=== PATIENT | male | born 1975 | race American Indian/Alaskan Native ===

== ENCOUNTER 2023-10-11 10:03 | Emergency (ER) | payer OTHER, SELFPAY ==
[2023-10-11 10:14] VITALS: BP 136/93; PULSE 92; RESP 18; TEMP 36.5; O2SAT 96; BMI 30.3
--- NOTE | 2023-10-11 10:35 | ED.GENADULT ---
HPI - General Adult General Chief complaint: Eye Problems Stated complaint: eye problem - Time Seen by Provider: 10/11/23 10:23 History of Present Illness HPI narrative: Patient is a 47-year-old male who reports right eye redness gluing shot in the morning matter over the last day. He does wear contacts, he has taken his out is wearing his glasses. He denies trauma or injury to his eye. He has no rashes around his eye. He notices a lid on the upper lid is swollen and red and he has got a lot of medial drainage from his I. It was glued shut today's got matter on his eye lashes as well. His gross visual acuity is normal but he notices a little more blurry with the matter in his eye area. 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 He notices that when he lifts his shoulder or abduct sedate gets more tender, can also feel little tingly in his biceps area and into his forearm. He notices when he raises hands over his head or uses arm he feels more discomfort in the shoulder. He has not. He has not really noted palpable tenderness no shoulder swelling redness or has not had trauma. He does do pretty heavy work however. Related Data Previous Rx's ?Medication ?Instructions ?Recorded doxycycline hyclate 100 mg capsule 100 mg PO BID #14 caps 10/11/23 tobramycin 0.3 % eye drops 1 drp ophthalmic (eye-right) Q4H 10/11/23 #5 mL Allergies Allergy/AdvReac Type Severity Reaction Status Date / Time erythromycin base Allergy Intermediate Verified 10/11/23 10:20 meperidine [From Demerol] Allergy Intermediate Verified 10/11/23 10:20 Penicillins Allergy Intermediate Hives Verified 10/11/23 10:20 Sulfa (Sulfonamide Allergy Intermediate Verified 10/11/23 10:20 Antibiotics) Review of Systems Status of ROS: Reports: 6 or more systems reviewed and unremarkable except as noted in History and below [facility] Social History Smoking Status: Unknown if ever smoked Exam Narrative: Exam Narrative: Objective: Patient's vital signs are within normal limits His left shoulder shows a positive impingement sign on the left and some tenderness over the top of the shoulder with empty watering can test, he has full range of motion the left shoulder no swelling warmth erythema Normal strength in left upper extremity. Does have some mild anterior tenderness to the shoulder. Does not have any neck symptoms. HEENT shows exudate of conjunctivitis on the right eye with lid swelling upper and lower worse on the upper. Careful inspection shows no foreign body I do not see any pupillary abnormality, he does have some filmy matter in the medial eye primarily. Const: Vital Signs, click to edit/add: Vital Signs - 24 hr 10/11/23 10:14 Temperature 97.7 F Pulse Rate [Pulse Oximeter] 92 Respiratory Rate 18 Blood Pressure [Ri t Upper Arm] 136/93 H Pulse Oximetry 96 Oxygen Delivery Me thod Room Air Course Vital Signs Vital signs: Initial Vital Signs Temperature 97.7 F 10/11/23 10:14 Temperature Source Temporal Artery Scan 10/11/23 10:14 Pulse Rate 92 10/11/23 10:14 Respiratory Rate 18 10/11/23 10:14 Blood Pressure 136/93 H 10/11/23 10:14 Blood Pressure Mean 107 H 10/11/23 10:14 Blood Pressure Position Supine 10/11/23 10:14 Pulse Oximetry 96 10/11/23 10:14 Oxygen Delivery Method Room Air 10/11/23 10:14 Vital Signs Temperature 97.7 F 10/11/23 10:14 Pulse Rate 92 10/11/23 10:14 Respiratory Rate 18 10/11/23 10:14 Blood Pressure 136/93 H 10/11/23 10:14 Pulse Oximetry 96 10/11/23 10:14 Oxygen Delivery Method Room Air 10/11/23 10:14 Temperature 97.7 F 10/11/23 10:14 Pulse Rate 92 10/11/23 10:14 Respiratory Rate 18 10/11/23 10:14 Blood Pressure 136/93 H 10/11/23 10:14 Pulse Oximetry 96 10/11/23 10:14 Oxygen Delivery Method Room Air 10/11/23 10:14 Medical Decision Making MDM Narrative Medical decision making narrative: [age] year white male presents to complaints: Left shoulder mild impingement. Patient has some mild tenderness, could be some mild rotator cuff irritation. At this point I would recommend he engage in light activity, Advil or Aleve as needed over the next few days, would not lift more than 5 lb for few days until he sees primary care, may need ortho referral as well if he is not better. Second problem is right eye conjunctivitis and some periorbital swelling lids, I think this all has primarily conjunctivitis but possibly because of the significant mattering it could be bacterial. Would put him on tobramycin eye drops 1 drop q.4 hours to the right eye for the next couple of days, would also give him oral doxycycline 100 mg b.i.d. x7 days, this is because of his multiple allergies to penicillin erythromycin and sulfa. Would have wash cloth his eye out carefully, avoid contacts, I point will be set up for tomorrow. Discharge Plan Discharge Clinical Impression: Bacterial conjunctivitis, Impingement of left shoulder Patient Disposition: Home, Self-Care Condition: Stable Additional Instructions: Recommend ice to the left shoulder 5-10 minutes 3 times a day for 3-5 days, recommend Advil or Aleve regularly over the next few days, recommend prompt primary care follow-up within next 3-5 days for reassessment of his left shoulder pain. Would recommend light duty at work for the next several days as well and will write a note to that effect, no lifting more than 5 lb with the left arm. Will give oral doxycycline and topical tobramycin for his right eye infection as he has some lid swelling and some redness around the eye. Eye appointment with [facility] income tax manager tomorrow at 11:40 AM. [facility] [address] [place] [address] Activity Level: Light activity Activity Detail: no more than 5 pounds lifting left arm x 3 days Discharge Diet: Regular Prescriptions: New doxycycline hyclate 100 mg capsule 100 mg PO BID Qty: 14 0RF tobramycin 0.3 % drops 1 drp ophthalmic (eye-right) Q4H Qty: 5 0RF Stand Alone Forms: [employer] Info Instructions
== END 2023-10-11 11:01 | disposition home or self-care (01) ==
LOC: ED 10:44
PROVIDERS: Emergency Provider Family Medicine; PCP Physician Assistant Medical
DX: H10.89 Other conjunctivitis (principal); M25.812 Other specified joint disorders, left shoulder
CPT/HCPCS: 99283; 99284; 99285

== ENCOUNTER 2023-11-16 08:10 | Outpatient (CLI) | payer OTHER, SELFPAY | END 2023-11-16 08:11 | disposition home or self-care (01) | LOC: NFLDREF 11-19 04:13 | PROVIDERS: PCP Physician Assistant Medical; Referring Provider Physician Assistant Medical; Visit Provider Physician Assistant Medical | DX: G25.81 Restless legs syndrome (principal); E78.1 Pure hyperglyceridemia; I10 Essential (primary) hypertension; Z11.59 Encounter for screening for other viral diseases; Z13.29 Encounter for screening for other suspected endocrine disorder; Z13.21 Encounter for screening for nutritional disorder | CPT/HCPCS: 80053; 80061; 82728; 83735; 84443; 86703; 86803 ==

== ENCOUNTER 2024-06-06 11:10 | Outpatient (CLI) | payer OTHER, SELFPAY | END 2024-06-06 11:11 | disposition home or self-care (01) | LOC: LKVREF 11:10 | PROVIDERS: PCP Physician Assistant Medical; Visit Provider Physician Assistant Medical | DX: E78.1 Pure hyperglyceridemia (principal) | CPT/HCPCS: 80061 ==

== ENCOUNTER 2024-11-07 13:13 | Outpatient (CLI) | payer OTHER, SELFPAY | END 2024-11-07 13:14 | disposition home or self-care (01) | PROVIDERS: PCP Physician Assistant Medical; Visit Provider Nurse Practitioner Family | DX: I10 Essential (primary) hypertension (principal); E78.1 Pure hyperglyceridemia; G47.9 Sleep disorder, unspecified; Z01.818 Encounter for other preprocedural examination | CPT/HCPCS: 80048; 82306 ==

== ENCOUNTER 2024-12-09 08:10 | Outpatient (CLI) | payer SELFPAY ==
[2024-12-13 15:59] LABS: Cotinine, S/P, Quant <5 ng/mL; Nicotine, S/P, Quant <5 ng/mL
== END 2024-12-09 08:11 | disposition home or self-care (01) ==
PROVIDERS: PCP Physician Assistant Medical; Visit Provider Orthopaedic Surgery
DX: M54.12 Radiculopathy, cervical region (principal)
CPT/HCPCS: 80323